=== PATIENT | female | born 1990 | race Caucasian/White ===

== ENCOUNTER → 2018-01-07 | Outpatient (CLI) | payer BC | LOC: BMCIMAGING 14:44 | PROVIDERS: ATTEND Family Medicine | DX: M25.551 Pain in right hip (principal); M89.9 Disorder of bone, unspecified ==

== ENCOUNTER → 2018-02-20 | Outpatient (CLI) | payer BC | LOC: EDSTATUS 12:30 → BMCIMAGING 12:30 | PROVIDERS: ATTEND Internal Medicine Rheumatology | DX: M79.671 Pain in right foot (principal); M79.672 Pain in left foot; M79.642 Pain in left hand; M79.641 Pain in right hand; M19.90 Unspecified osteoarthritis, unspecified site ==

== ENCOUNTER → 2018-03-08 | Outpatient (CLI) | payer BC | LOC: BMCIMAGING 12:27 | PROVIDERS: ATTEND Family Medicine | DX: M54.5 Low back pain (principal) ==